=== PATIENT | female | born 1985 | race Caucasian/White ===

== ENCOUNTER → 2019-10-25 | Outpatient (CLI) | payer BC ==
[~2019-10-25] MED LIST: MOTRIN 600600 MG/TAB PO; ONDANSETRON4 MG PO; PRENATAL VITAMI1 TA5 PO; VALTREX 50500 MG/TAB PO
== END ==
LOC: COL.RAD 09:14
DX: M16.11 Unilateral primary osteoarthritis, right hip (principal)
CPT/HCPCS: A9585; Q9967

== ENCOUNTER → 2020-03-31 | Outpatient (CLI) | payer BC | LOC: COL.VAS 08:46 | DX: M79.604 Pain in right leg (principal); Z96.641 Presence of right artificial hip joint ==

== ENCOUNTER → 2021-03-11 | Outpatient (REF) ==
[2021-03-11 20:57] LABS: ALBUMIN 4.7 gm/dL (3.5-5.0); BILIRUBIN,TOTAL 0.6 mg/dL (0.0-1.0); CALCIUM 9.6 mg/dL (8.4-10.2); CREATININE, serum 0.68 (0.52-1.25); POTASSIUM 4.1 mmol/L (3.4-5.0); TOTAL PROTEIN 8.2 gm/dL (6.4-8.2)
[2021-03-11 22:20] LABS: THYROID STIMULATING HORMONE 1.97 uIU/mL (0.465-4.680)
== END ==
LOC: ZLAB.WCH 20:24
PROVIDERS: Nurse Practitioner Primary Care
DX: Z01.89 Encounter for other specified special examinations (principal)

== ENCOUNTER → 2023-08-30 | Outpatient (CLI) | payer BC | LOC: COL.RAD 07:32 | DX: K21.9 Gastro-esophageal reflux disease without esophagitis (principal); K44.9 Diaphragmatic hernia without obstruction or gangrene; R14.0 Abdominal distension (gaseous) | CPT/HCPCS: A9541-JZ ==